=== PATIENT | male | born 1960 | race Asian ===

== ENCOUNTER 2025-05-19 18:38 | Emergency (ER) | payer OTHER ==
[~2025-05-19 18:38] MED LIST: DOLU50TA MT; VIRE MT
[2025-05-19] MEDS ORDERED: TENOFOVIR 300MG TABLET PO ONE (19:00)
[2025-05-19] MEDS ORDERED: RALTEGRAVIR 400 MG TABLET PO ONE (19:00)
[2025-05-19] MEDS ORDERED: ONDANSETRON 4MG ODT PO ONE (19:00)
[2025-05-19 19:18] LABS: BASOPHILS % 0.5 % (0.0-2.0); EOSINOPHILS % 0.5 % (0.0-5.0); HEMATOCRIT. 43.3 % (42.0-52.0); HEMOGLOBIN. 13.2 g/dL (14.0-18.0); LYMPHOCYTES % 25.5 % (20.0-50.0); MEAN PLATELET VOLUME 8.6 fl (7.4-10.4); MONOCYTES % 5.9 % (2.0-8.0); NEUTROPHILS % 67.6 % (40.0-76.0); PLATELET 223 x1000/uL (130-400); RED BLOOD CELL COUNT 6.02 mill/uL (4.7-6.1); RED CELL DISTRIBUTION WIDTH 14.3 % (11.6-14.6)
[2025-05-19 19:32] LABS: CREATININE 0.9 mg/dL (0.6-1.3); UREA NITROGEN BLOOD 13 mg/dL (9-23)
[2025-05-19 19:34] LABS: ASPARTATE AMINOTRANSFERASE 25 IU/L (<34); BILIRUBIN DIRECT 0.5 mg/dL (<=3.0); BILIRUBIN TOTAL 1.8 mg/dL (0.1-1.0); PROTEIN TOTAL 7.9 g/dL (6.0-8.3)
[2025-05-19 20:13] LABS: HIV 1/2 AB P24AG Negative (Negative)
[2025-05-19 20:19] LABS: HEPATITIS A AB IGM NEGATIVE (Negative)
[2025-05-19 20:20] LABS: HEPATITIS B CORE AB IGM NEGATIVE (Negative); HEPATITIS C AB NON REACTIVE (Neg) (Negative)
[2025-05-19 21:15] LABS: HEPATITIS C VIR.AB 0.12 INDEXVAL (0.00-0.80); HIV 1/2 AB P24AG Negative (Negative)
[2025-05-19 21:18] LABS: HEPATITIS C VIR.AB 0.12 INDEXVAL (0.00-0.80)
[2025-05-21 04:10] LABS: HSV TYPE 2 SPECIFIC AB IGG Non Reactive (Non Reactive)
== END 2025-05-19 19:49 | disposition home or self-care (01) ==
LOC: ER 18:38
DX: Z00.00 Encounter for general adult medical examination without abnormal findings (principal); Z79.899 Other long term (current) drug therapy
CPT/HCPCS: 36415; 80048; 80076; 85025; 86592; 86695; 86696; 86705; 86706; 86709; 86803; 87340; 99283